=== PATIENT | male | born 1985 | race Caucasian/White ===

== ENCOUNTER 2019-11-18 23:19 | Emergency (ER) | payer BC ==
[2019-11-18] MEDS ORDERED: Aspirin 81 MG Tab.Chew PO ONE (23:27)
[2019-11-18] MEDS ORDERED: Sodium Chloride 0.9% 1,000 ML IV ONE (23:27)
[2019-11-18] MEDS ORDERED: Sodium Chloride 0.9% 2.5 ML Syringe FLUSH PRN (23:27)
[2019-11-18] MEDS ORDERED: Acetaminophen 500 MG Tab PO ONE (23:27)
[2019-11-18] MEDS ORDERED: Sodium Chloride 0.9% 10 ML Syringe FLUSH PRN (23:27)
--- NOTE | 2019-11-18 23:31 | EDM.PDOC ---
ED HPI GENERAL MEDICAL PROBLEM - General Stated Complaint: SHORTNESS OF BREATH Time Seen by Provider: 11/18/19 23:27 - History of Present Illness INITIAL COMMENTS - FREE TEXT/NARRATIVE: History of present illness: 44-year-old male presenting with left-sided chest pain with some radiation into the right-sided chest as well as difficulty breathing, fevers, chills, headache and feeling ill. Symptoms started several hours after getting home from work this evening several hours ago. He had been working for many hours in the heat and felt dehydrated. Review of systems: As per history of present illness and below otherwise all systems reviewed and negative. Past medical history: As per history of present illness and as reviewed below otherwise noncontributory. Surgical history: As per history of present illness and as reviewed below otherwise noncontributory. Social history: No reported history of drug or alcohol abuse. Family history: As per history of present illness and as reviewed below otherwise noncontributory. Physical exam: GEN: no acute distress, well appearing HEENT: Atraumatic, normocephalic, mucous membranes moist, Neck: supple, nontender, trachea midline. Lungs: No respiratory distress. Heart: RRR Abdomen: Soft, nondistended, nontender. Back: nontender Extremities: Atraumatic. Neurovascularly intact. Neuro: Awake, alert, oriented. Neuro Exam nonfocal. Skin: warm, dry, no lesions Diagnostics: EKG, sinus tachycardia, rate 102, left axis deviation, mild ST prominence diffusely, without any particular distribution, questionable possibly pericarditis. Therapeutics: [] MDM: Impression: [] Plan: [] Definitive disposition and diagnosis as appropriate pending reevaluation and review of above. Generalized Pain Score (Numeric/FACES): 2 - Related Data Allergies Allergy/AdvReac Type Severity Reaction Status Date / Time No Known Allergies Allergy Verified 11/18/19 23:40 Home Meds: Home Meds Amoxicillin/Potassium Clav [Augmentin 875-125 Tablet] 1 each PO BID #20 tablet 11/19/19 [Rx] Azithromycin [Zithromax] 250 mg PO DAILY #6 tab 11/19/19 [Rx] ED ROS GENERAL - Review of Systems Review Of Systems: See Below (See HPI) ED EXAM, GENERAL - Physical Exam Exam: See Below (See HPI) Course - Vital Signs Text/Narrative:: Chest pain, difficulty breathing, fever and chills. Chest x-ray shows pneumon ia. White blood cell count is elevated. EKG shows diffuse mild ST prominence with no reciprocal changes. EKG questioning pericarditis, however initial and repeat troponin negative. Patient with low risk for coronary artery disease. CPK is slightly elevated. Creatinine not elevated. Given Rocephin and azithromycin for community-acquired pneumonia. Given IV fluids. The patient reports he feels much better though still has mild headache. Blood pressure is slightly low. We will give a second liter of IV fluids and Toradol IV. I discussed with the patient my recommendation for admission to the hospital, especially as his O2 saturation was slightly low on arrival here, however the patient absolutely does not want to stay in the hospital and would like to be released home after he completes his second antibiotic. We discussed risks of leaving. Patient voiced understanding of the risks. Antibiotic prescriptions for Augmentin and azithromycin were given to the patient. On reassessment he is still in no acute distress and feeling better. Stable for discharge. Last Recorded V/S: Last Vital Signs Temp 98.7 F 11/19/19 00:57 Pulse 80 11/19/19 04:00 Resp 16 11/19/19 04:00 BP 109/54 L 11/19/19 04:00 Pulse Ox 96 11/19/19 04:00 - Orders/Labs/Meds Orders: Active Orders 24 hr Category Date Time Status Cardiac Monitoring [RC] . DIRECTED Care 11/18/19 23:27 Active EKG Documentation Completion [RC] STAT Care 11/18/19 23:28 Active Blood Culture x2 Reflex Set [OM.PC] Stat Oth 11/18/19 23:28 Ordered Saline Lock Insert [OM.PC] Stat Oth 11/18/19 23:27 Ordered Labs: Laboratory Tests 11/18/19 11/18/19 11/18/19 Range/Units 23:30 23:30 23:30 WBC 22.05 H (4.0-11.0) K/uL RBC 5.29 (4.50-5.90) M/uL Hgb 17.8 H (13.0-17.0) g/dL Hct 50.2 H (38.0-50.0) % MCV 94.9 (80.0-98.0) fL MCH 33.6 H (27.0-32.0) pg MCHC 35.5 (31.0-37.0) g/dL RDW Std Deviation 48.8 (28.0-62.0) fl RDW Coeff of Emelina 14 (11.0-15.0) % Plt Count 204 (150-400) K/uL MPV 11.40 (7.40-12.00) fL Neut % (Auto) 88.6 H (48.0-80.0) % Lymph % (Auto) 5.5 L (16.0-40.0) % Columbia % (Auto) 5.7 (0.0-15.0) % Eos % (Auto) 0.2 (0.0-7.0) % Baso % (Auto) 0.0 (0.0-1.5) % Neut # (Auto) 19.5 H (1.4-5.7) K/uL Lymph # (Auto) 1.2 (0.6-2.4) K/uL Columbia # (Auto) 1.3 H (0.0-0.8) K/uL Eos # (Auto) 0.1 (0.0-0.7) K/uL Baso # (Auto) 0.0 (0.0-0.1) K/uL Nucleated RBC % 0.0 /100WBC Nucleated RBCs # 0 K/uL Lactate (0.20-2.00) mmol/L Sodium 137 (136-148) mmol/L Potassium 3.0 L (3.5-5.1) mmol/L Chloride 99 (98-107) mmol/L Carbon Dioxide 26.4 (21.0-32.0) mmol/L BUN 17 (7.0-18.0) mg/dL Creatinine 1.2 (0.8-1.3) mg/dL Est Cr Clr Drug Dosing 93.25 mL/min Estimated GFR (MDRD) > 60.0 ml/min Glucose 93 (74-106) mg/dL Calcium 8.0 L (8.5-10.1) mg/dL Magnesium 1.2 L (1.8-2.4) mg/dL Total Bilirubin 1.4 H (0.2-1.0) mg/dL AST 23 (15-37) IU/L ALT 45 (14-63) IU/L Alkaline Phosphatase 86 (46-116) U/L Creatine Kinase 365 H (26-308) U/L Troponin I < 0.050 (0.000-0.056) ng/mL B-Natriuretic Peptide 7 (<100) PG/ML Total Protein 6.5 (6.4-8.2) g/dL Albumin 4.0 (3.4-5.0) g/dL Globulin 2.5 L (2.6-4.0) g/dL Albumin/Globulin Ratio 1.6 (0.9-1.6) Lipase 80 (73-393) U/L TSH 3rd Generation 0.96 (0.36-3.74) uIU/mL SARS-CoV-2 RNA (RT-PCR) (NEGATIVE) 11/18/19 11/19/19 11/19/19 Range/Units 23:33 00:25 01:43 WBC (4.0-11.0) K/uL RBC (4.50-5.90) M/uL Hgb (13.0-17.0) g/dL Hct (38.0-50.0) % MCV (80.0-98.0) fL MCH (27.0-32.0) pg MCHC (31.0-37.0) g/dL RDW Std Deviation (28.0-62.0) fl RDW Coeff of Emelina (11.0-15.0) % Plt Count (150-400) K/uL MPV (7.40-12.00) fL Neut % (Auto) (48.0-80.0) % Lymph % (Auto) (16.0-40.0) % Columbia % (Auto) (0.0-15.0) % Eos % (Auto) (0.0-7.0) % Baso % (Auto) (0.0-1.5) % Neut # (Auto) (1.4-5.7) K/uL Lymph # (Auto) (0.6-2.4) K/uL Columbia # (Auto) (0.0-0.8) K/uL Eos # (Auto) (0.0-0.7) K/uL Baso # (Auto) (0.0-0.1) K/uL Nucleated RBC % /100WBC Nucleated RBCs # K/uL Lactate 1.3 (0.20-2.00) mmol/L Sodium (136-148) mmol/L Potassium (3.5-5.1) mmol/L Chloride (98-107) mmol/L Carbon Dioxide (21.0-32.0) mmol/L BUN (7.0-18.0) mg/dL Creatinine (0.8-1.3) mg/dL Est Cr Clr Drug Dosing mL/min Estimated GFR (MDRD) ml/min Glucose (74-106) mg/dL Calcium (8.5-10.1) mg/dL Magnesium (1.8-2.4) mg/dL Total Bilirubin (0.2-1.0) mg/dL AST (15-37) IU/L ALT (14-63) IU/L Alkaline Phosphatase (46-116) U/L Creatine Kinase (26-308) U/L Troponin I < 0.050 (0.000-0.056) ng/mL B-Natriuretic Peptide (<100) PG/ML Total Protein (6.4-8.2) g/dL Albumin (3.4-5.0) g/dL Globulin (2.6-4.0) g/dL Albumin/Globulin Ratio (0.9-1.6) Lipase (73-393) U/L TSH 3rd Generation (0.36-3.74) uIU/mL SARS-CoV-2 RNA (RT-PCR) NEGATIVE (NEGATIVE) Meds: Medications Discontinued Medications Generic Name Dose Route Start Last Admin Trade Name Freq PRN Reason Stop Dose Admin Acetaminophen 1,000 mg 11/18/19 23:27 11/19/19 00:18 Tylenol Extra Strength PO 11/18/19 23:28 1,000 mg ONETIME ONE Administration Aspirin 324 mg 11/18/19 23:27 11/19/19 00:18 Aspirin PO 11/18/19 23:28 324 mg ONETIME ONE Administration Sodium Chloride 1,000 mls @ 999 mls/hr 11/18/19 23:27 11/19/19 00:19 Normal Saline IV 11/19/19 00:27 999 mls/hr .Bolus ONE Administration Ceftriaxone Sodium/Dextrose 1 50 mls @ 100 mls/hr 11/19/19 00:09 11/19/19 00:19 gm/ Premix IV 11/19/19 00:38 100 mls/hr ONETIME ONE Administration Azithromycin 500 mg/ Sodium 250 mls @ 250 mls/hr 11/19/19 00:15 11/19/19 02:48 Chloride IV 250 mls/hr ONETIME TRIP Administration Sodium Chloride 1,000 mls @ 999 mls/hr 11/19/19 02:42 11/19/19 02:48 Normal Saline IV 11/19/19 03:42 999 mls/hr .Bolus ONE Administration Sodium Chloride 1,000 mls @ 999 mls/hr 11/19/19 02:43 11/19/19 02:48 Normal Saline IV 11/19/19 03:43 Not Given .Bolus ONE Ketorolac Tromethamine 30 mg 11/19/19 02:40 11/19/19 02:48 Toradol IVPUSH 11/19/19 02:41 30 mg ONETIME ONE Administration Sodium Chloride 10 ml 11/18/19 23:27 11/19/19 00:19 Saline Flush FLUSH 10 ml ASDIRECTED PRN Administration Keep Vein Open Sodium Chloride 2.5 ml 11/18/19 23:27 11/19/19 00:19 Saline Flush FLUSH 2.5 ml ASDIRECTED PRN Administration Keep Vein Open - Re-Assessments/Exams Free Text/Narrative Re-Assessment/Exam: 11/19/19 00:09 The patient is feeling much better, sleeping on reassessment. He reports his chest pain is much improved although he feels very fatigued. 11/19/19 02:43 Patient reports he is feeling much better. He has no further chest pain or difficulty breathing. He does report he has mild headache. I discussed recommendation for admission. The patient does not want to stay nor be admitted. 11/19/19 03:42 Patient is still doing well. He has received IV fluids and antibiotics now. He still would like to go home. Based on slightly abnormal EKG will refer to both primary care and cardiology. Departure - Departure Time of Disposition: 03:42 Disposition: Home, Self-Care 01 Clinical Impression: Dehydration Pneumonia Qualifiers: Pneumonia type: due to unspecified organism Laterality: bilateral Lung location: lower lobe of lung Qualified Code(s): J18.9 - Pneumonia, unspecified organism Chest pain Qualifiers: Chest pain type: unspecified Qualified Code(s): R07.9 - Chest pain, unspecified Prescriptions: Amoxicillin/Potassium Clav [Augmentin 875-125 Tablet] 1 each PO BID #20 tablet Azithromycin [Zithromax] 250 mg PO DAILY #6 tab Instructions: Shortness of Breath, Adult, [id number], Dehydration, Adult, [id number], Upper Respiratory Infection, Adult, [id number], Community- Acquired Pneumonia, Adult, [id number] Referrals: PCP,None [Primary Care Provider] - Forms: ED Department Discharge Additional Instructions: The following information is given to patients seen in the emergency department who are being discharged to home. This information is to outline your options for follow-up care. We provide all patients seen in our emergency department with a follow-up referral. The need for follow-up, as well as the timing and circumstances, are variable depending upon the specifics of your emergency department visit. If you don't have a primary care physician on staff, we will provide you with a referral. We always advise you to contact your personal physician following an emergency department visit to inform them of the circumstance of the visit and for follow-up with them and/or the need for any referrals to a consulting specialist. The emergency department will also refer you to a specialist when appropriate. This referral assures that you have the opportunity for follow-up care with a specialist. All of these measure are taken in an effort to provide you with optimal care, which includes your follow-up. Under all circumstances we always encourage you to contact your private physician who remains a resource for coordinating your care. When calling for follow-up care, please make the office aware that this follow-up is from your recent emergency room visit. If for any reason you are refused follow-up, please contact the [facility] Emergency Department at and asked to speak to the emergency department charge nurse. follow-up with the cardiology clinic below as you have a slightly abnormal EKG. Please follow-up with your primary care physician or 1 of the primary care clinics listed below. [facility] - Primary Care [address] [place] [id number] [address] [place] [address] [facility] - Cardiology [address] [place] [address] Sepsis Event Note (ED) - Focused Exam Vital Signs: Vital Signs Temp Pulse Resp BP Pulse Ox 11/19/19 04:00 80 16 109/54 L 96 11/19/19 00:57 98.7 F 82 16 101/49 L 94 L 11/18/19 23:38 98.4 F 105 H 18 140/69 92 L - My Orders Last 24 Hours: My Active Orders 11/18/19 23:27 Cardiac Monitoring [RC] . DIRECTED Saline Lock Insert [OM.PC] Stat 11/18/19 23:28 EKG Documentation Completion [RC] STAT Blood Culture x2 Reflex Set [OM.PC] Stat - Assessment/Plan Last 24 Hours: My Active Orders 11/18/19 23:27 Cardiac Monitoring [RC] . DIRECTED Saline Lock Insert [OM.PC] Stat 11/18/19 23:28 EKG Documentation Completion [RC] STAT Blood Culture x2 Reflex Set [OM.PC] Stat
--- NOTE | 2019-11-19 00:05 | CR ---
INDICATION: Dyspnea TECHNIQUE: Chest radiograph 1 view COMPARISON: None FINDINGS: Mediastinum: The mediastinum is normal in appearance. The heart silhouette is normal in size and morphology. Lung: Patchy airspace opacities are present in the medial lung bases. No sign of pleural effusion seen. No pneumothorax is identified. Bone and Soft tissue: Unremarkable for age. IMPRESSION: 1. Patchy airspace opacities are present in the medial lung bases. These findings can be seen with atelectasis and/or pneumonia. Dictated by Guru Sanchez MD @ 11/19/2019 12:03:35 AM Dictated by: Guru Sanchez MD @ 11/19/2019 00:03:42 (Electronically Signed)
[2019-11-19] MEDS ORDERED: cefTRIAXone 1 GM in Premix Bag 1 BAG IV ONE (00:09)
[2019-11-19 00:13] LABS: BLOOD UREA NITROGEN,BUN 17 mg/dL (7.0-18.0); CARBON DIOXIDE,CO2 26.4 mmol/L (21.0-32.0); CHLORIDE,CL 99 mmol/L (98-107); GLUCOSE RANDOM 93 mg/dL (74-106); LIPASE 80 U/L (73-393); SODIUM,NA 137 mmol/L (136-148)
[2019-11-19] MEDS ORDERED: Azithromycin 500 MG in Sodium Chloride 0.9% 250 ML IV SCH (00:15)
[2019-11-19] MEDS ORDERED: Ketorolac 30 MG/ML SDV IVPUSH ONE (02:40)
[2019-11-19] MEDS ORDERED: Sodium Chloride 0.9% 1,000 ML IV ONE ×2 (02:42→02:43)
== END 2019-11-19 04:00 | disposition home or self-care (01) ==
LOC: MW.ED 23:19
DX: J18.9 Pneumonia, unspecified organism (principal); E86.0 Dehydration; Z20.828 Contact with and (suspected) exposure to other viral communicable diseases
CPT/HCPCS: 36415; 71045; 80053; 82550; 83605; 83690; 83735; 83880; 84443; 84484; 85025; 87040; 87635; 93005; 96361; 96365; 96367; 96375; 99285; A9270; J0456; J0696; J1885; J7030; J7050; 99284; U0002

== ENCOUNTER 2020-01-29 11:26 | Emergency (ER) | payer BC, OTHER ==
[2020-01-29] MEDS ORDERED: Ibuprofen 800 MG Tab PO ONE (11:40)
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
== END 2020-01-29 12:40 | disposition home or self-care (01) ==
LOC: MW.ED 11:26
DX: S46.911A Strain of unspecified muscle, fascia and tendon at shoulder and upper arm level, right arm, initial encounter (principal); V29.9XXA Motorcycle rider (driver) (passenger) injured in unspecified traffic accident, initial encounter
CPT/HCPCS: 73030; 99284; A9270; 99282

== ENCOUNTER 2023-09-22 19:11 | Emergency (ER) | payer SELFPAY ==
[2023-09-22] MEDS: Sodium Chloride 0.9% 1,000 ML IV ONE (20:26)
[2023-09-22] MEDS: Ondansetron 4 MG/2 ML SDV IVPUSH ONE (20:26)
[2023-09-22] MEDS: Morphine 4 MG/ML Syringe IVPUSH ONE ×2 (20:26→21:51)
[2023-09-22 20:38] LABS: HEMATOCRIT 48.7 % (42.0-52.0); HEMOGLOBIN 16.8 g/dL (14.0-18.0); MEAN CORPUSCULAR HEMOGLOBIN 32.9 pg (28.0-32.0); MEAN CORPUSCULAR HGB CONC 34.5 g/dL (32.0-36.0); MEAN CORPUSCULAR VOLUME 95.3 fL (83.0-99.0); MEAN PLATELET VOLUME 10.5 fL (9.4-12.4); PLATELET COUNT,PLT 253 K/uL (150-400); RED BLOOD CELL COUNT 5.11 M/uL (4.52-5.90); WHITE BLOOD CELL COUNT,WBC 10.01 K/uL (3.9-11.3)
[2023-09-22 21:01] LABS: A/G RATIO 1.2 (0.9-1.6); ALBUMIN 3.6 g/dL (3.4-5.0); BILIRUBIN TOTAL 0.6 mg/dL (0.2-1.0); CALCIUM 8.4 mg/dL (8.5-10.1); CARBON DIOXIDE,CO2 27.4 mmol/L (21.0-32.0); CREATININE 1.3 mg/dL (0.8-1.3); EST CRCL DRUG DOSING (CG) 83.67 mL/min; POTASSIUM,K 4.5 mmol/L (3.5-5.1); PROTEIN TOTAL,TP 6.6 g/dL (6.4-8.2)
[2023-09-22 21:14] LABS: BAND PERCENT MAN 1 %; SEG NEUTROPHILS ABSOLUTE MAN 6.41 K/uL (1.80-7.70); SEG NEUTROPHILS PERCENT MAN 64 % (41-71)
[2023-09-22 21:15] LABS: BASOPHILS PERCENT MAN 1 % (0-1); EOSINOPHILS PERCENT MAN 2 % (0-6); LYMPHOCYTES PERCENT MAN 21 % (24-44); MONOCYTES PERCENT MAN 11 % (0-8)
[2023-09-22] MEDS: Iopamidol 755 MG/ML 500 ML Multipack Bottle IVPUSH ONE (21:37)
[2023-09-22] MEDS: HYDROmorphone 0.5 MG/0.5 ML Syringe IVPUSH ONE (22:25)
[2023-09-22 23:18] LABS: APPEARANCE,URINE CLEAR; BILIRUBIN,URINE NEGATIVE (NEGATIVE); COLOR,URINE YELLOW; GLUCOSE,URINE NEGATIVE (NEGATIVE); KETONES,URINE NEGATIVE (NEGATIVE); LEUKOCYTE ESTERASE,URINE NEGATIVE (NEGATIVE); NITRITE,URINE NEGATIVE (NEGATIVE); OCCULT BLOOD,URINE NEGATIVE (NEGATIVE); PROTEIN,URINE NEGATIVE (NEGATIVE); UROBILINOGEN,URINE 0.2 EU/dL (<2.0)
== END 2023-09-22 23:48 | disposition home or self-care (01) ==
LOC: MW.ED 19:11
DX: S22.41XA Multiple fractures of ribs, right side, initial encounter for closed fracture (principal); S32.039A Unspecified fracture of third lumbar vertebra, initial encounter for closed fracture; S32.049A Unspecified fracture of fourth lumbar vertebra, initial encounter for closed fracture; S32.059A Unspecified fracture of fifth lumbar vertebra, initial encounter for closed fracture; W11.XXXA Fall on and from ladder, initial encounter; Z75.8 Other problems related to medical facilities and other health care
CPT/HCPCS: 36415; 71045; 74177; 80053; 81003; 83690; 85025; 96361; 96374; 96375; 96376; 99284; J1170; J2270; J2405; J7030; Q9967